=== PATIENT | female | born 2000 | race Two or more races ===

== ENCOUNTER 2023-04-17 20:59 | Emergency (ER) | payer MEDICAID, OTHER ==
[~2023-04-17] VITALS: Ht 162.6 cm; Wt 107.2 kg
[2023-04-17 21:08] VITALS: BP 126/78; TEMP 98.4
[2023-04-17 23:35] VITALS: PULSE 92; RESP 18; O2SAT 100
== END 2023-04-18 00:20 | disposition home or self-care (01) ==
LOC: ER 20:59
DX: S40.021A Contusion of right upper arm, initial encounter (principal); W18.39XA Other fall on same level, initial encounter; Y93.89 Activity, other specified; Y92.89 Other specified places as the place of occurrence of the external cause; Y99.8 Other external cause status
CPT/HCPCS: 73090